=== PATIENT | male | born 1945 | race Caucasian/White ===

== ENCOUNTER 2016-06-12 13:25 | Outpatient (CLI) | payer MEDICARE ==
[2016-06-12 14:02] LABS: #Basophils 0.1 thou/uL (0.0-0.2); #Eosinphils 0.3 thou/uL (0.0-0.7); #Monocytes 0.9 thou/uL (0.11-0.59); #Neutrophils 5.4 thou/uL (1.40-6.50); %Basophils 1.5 % (0.0-1.0); %Eosinophils 3.9 % (0.0-10.0); %Lymphocytes 22.5 % (21.0-51.0); %Monocytes 10.2 % (0.0-10.0); %Neutrophils 61.9 % (42.0-75.0); Hemoglobin 16.9 g/dL (14.0-18.0); Mean Corpuscular HGB CONC 34.1 g/dL (32.0-36.0); Mean Corpuscular Hemoglobin 32.7 pg (27.0-31.0); Mean Corpuscular Volume 95.7 fl (80.0-94.0); Mean Platelet Volume 6.7 fL (7.4-10.4); Platelet Count 414 thou/uL (130-400); RBC Distribution Width 10.9 % (11.5-14.5); Red Blood Cell (RBC) Count 5.16 mill/uL (4.70-6.10); White Blood Cell (WBC) Count 8.6 thou/uL (4.8-10.8)
[2016-06-12 14:18] LABS: ALT (SGPT) 37 U/L (0-55); AST (SGOT) 28 U/L (5-34); Albumin 4.2 g/dL (3.4-4.8); Alkaline Phosphatase 81 U/L (40-150); Anion Gap 15 mmol/L (10-20); BUN (Urea Nitrogen) 18 mg/dL (8.4-25.7); Bilirubin, Total 0.6 mg/dL (0.2-1.2); Calc. Creatinine Clearance 0 mL/min (70-130); Calcium 9.8 mg/dL (7.8-10.44); Carbon Dioxide 23 mmol/L (23-31); Cardiac Risk 3.5 (Less than 4.5); Chloride 96 mmol/L (98-107); Cholesterol 135 mg/dL (< 200 Desired); Estimated GFR-MDRD 65; Globulin 3.1 g/dL (2.4-3.5); Glucose 101 mg/dL (83-110); HDL Cholesterol 39 mg/dL (>60 Neg Risk); LDL Cholesterol, Calculated 67 mg/dL; Potassium 3.9 mmol/L (3.5-5.1); Protein, Total 7.3 g/dL (5.8-8.1); Sodium 130 mmol/L (136-145); Triglycerides 143 mg/dL (Less than 150)
[2016-06-12 14:36] LABS: PSA-Asymptomatic (SCREENING) 0.22 ng/mL (0-4.0); Thyroid Stimulating Hormone 1.3261 uIU/mL (0.35-4.94)
== END 2016-06-12 13:26 | disposition home or self-care (01) ==
LOC: HPCALD 13:25
PROVIDERS: ATTEND Family Medicine
DX: Z12.5 Encounter for screening for malignant neoplasm of prostate (principal); I10 Essential (primary) hypertension; E78.5 Hyperlipidemia, unspecified
CPT/HCPCS: 36415; 80053; 80061; 84443; 85025; G0103

== ENCOUNTER 2016-09-04 07:06 | Outpatient (CLI) | payer MEDICARE ==
[2016-09-04 07:39] LABS: Mean Corpuscular HGB CONC 34.6 g/dL (32.0-36.0); Mean Corpuscular Hemoglobin 33.2 pg (27.0-31.0); Mean Corpuscular Volume 96.1 fl (80.0-94.0); Mean Platelet Volume 6.7 fL (7.4-10.4); Platelet Count 321 thou/uL (130-400); RBC Distribution Width 12.2 % (11.5-14.5); Red Blood Cell (RBC) Count 4.81 mill/uL (4.70-6.10); White Blood Cell (WBC) Count 6.6 thou/uL (4.8-10.8)
[2016-09-04 07:54] LABS: ALT (SGPT) 21 U/L (8-55); AST (SGOT) 17 U/L (5-34); Alkaline Phosphatase 67 U/L (40-150); BUN (Urea Nitrogen) 10 mg/dL (8.4-25.7); Bilirubin, Direct 0.2 mg/dL (0.1-0.3); Bilirubin, Total 0.5 mg/dL (0.2-1.2); Calc. Creatinine Clearance 0 mL/min (70-130); Estimated GFR-MDRD 75; Protein, Total 6.7 g/dL (5.8-8.1); Triglycerides 82 mg/dL (Less than 150)
[2016-09-06 08:22] LABS: Antinuclear AB Negative (Negative)
== END 2016-09-04 07:07 | disposition home or self-care (01) ==
LOC: BURLAB 07:06
PROVIDERS: ATTEND Physician Assistant Medical
DX: L40.0 Psoriasis vulgaris (principal)
CPT/HCPCS: 36415; 80076; 82565; 84478; 84520; 85027; 86038

== ENCOUNTER 2016-10-04 07:24 | Outpatient (CLI) | payer MEDICARE ==
[2016-10-04 08:07] LABS: Hemoglobin 16.8 g/dL (14.0-18.0); Mean Corpuscular HGB CONC 34.4 g/dL (32.0-36.0); Mean Corpuscular Hemoglobin 32.4 pg (27.0-31.0); Mean Corpuscular Volume 94.3 fl (80.0-94.0); Mean Platelet Volume 6.7 fL (7.4-10.4); Platelet Count 365 thou/uL (130-400); RBC Distribution Width 11.9 % (11.5-14.5); Red Blood Cell (RBC) Count 5.19 mill/uL (4.70-6.10); White Blood Cell (WBC) Count 7.8 thou/uL (4.8-10.8)
[2016-10-04 08:28] LABS: ALT (SGPT) 24 U/L (8-55); AST (SGOT) 21 U/L (5-34); Albumin 4.1 g/dL (3.4-4.8); Alkaline Phosphatase 87 U/L (40-150); BUN (Urea Nitrogen) 12 mg/dL (8.4-25.7); Bilirubin, Direct 0.2 mg/dL (0.1-0.3); Bilirubin, Total 0.5 mg/dL (0.2-1.2); Calc. Creatinine Clearance 0 mL/min (70-130); Estimated GFR-MDRD 83; Protein, Total 7.7 g/dL (5.8-8.1); Triglycerides 136 mg/dL (Less than 150)
== END 2016-10-04 07:25 | disposition home or self-care (01) ==
LOC: BURLAB 07:24
PROVIDERS: ATTEND Physician Assistant Medical
DX: L40.0 Psoriasis vulgaris (principal)
CPT/HCPCS: 36415; 80076; 82565; 84478; 84520; 85027; 86038

== ENCOUNTER 2017-11-04 14:38 | Outpatient (CLI) | payer MEDICARE ==
--- NOTE | 2017-11-04 16:58 | RAD ---
CHEST 2 VIEWS: Date: 11/04/17 The heart is mildly enlarged, but there are no congestive changes or pleural effusions. Calcific pearson ges are seen in the aortic arch. The trachea is close to midline. There are no lobar consolidations. The lungs are hyperexpanded, suggesting that there may be an element of COPD. There is a questionable nodular area in the right lower chest on the PA view that is not confidently seen on the lateral vie w. It could be a small, 8-9 mm, nodule, or could just be a confluence of lung markings. Depending upo n the clinical history of the patient, one may wish to follow with a CT scan to be certain, or at [facility] follow-up chest films over a short interval. IMPRESSION: 1. Mild cardiomegaly and arteriosclerosis. No congestive change. 2. Hyperexpanded lungs. 3. Equivocal 8-9 mm nodule in the right lower chest. See above. CODE T. POS: HOME
[2017-11-04 18:01] LABS: Hemoglobin 13.8 g/dL (14.0-18.0); Mean Corpuscular HGB CONC 34.5 g/dL (32.0-36.0); Mean Corpuscular Hemoglobin 33.6 pg (27.0-31.0); Mean Corpuscular Volume 97.5 fL (78.0-98.0); Mean Platelet Volume 8.6 fL (7.4-10.4); Platelet Count 333 thou/uL (130-400); RBC Distribution Width 12.9 % (11.5-14.5); White Blood Cell (WBC) Count 8.9 thou/uL (4.8-10.8)
[2017-11-04 18:13] LABS: ALT (SGPT) 20 U/L (8-55); AST (SGOT) 22 U/L (5-34); Albumin 4.2 g/dL (3.4-4.8); Alkaline Phosphatase 68 U/L (40-150); BUN (Urea Nitrogen) 17 mg/dL (8.4-25.7); Bilirubin, Direct 0.1 mg/dL (0.1-0.3); Bilirubin, Total 0.3 mg/dL (0.2-1.2); Calc. Creatinine Clearance 0 mL/min (70-130); Estimated GFR-MDRD 62; Protein, Total 6.7 g/dL (5.8-8.1)
[2017-11-05 12:25] LABS: ANA Symphony (Qualitative) Negative (Negative); dsDNA IgG Antibody 1.1 IU/mL (<10 Negative)
== END 2017-11-04 14:39 | disposition home or self-care (01) ==
LOC: BURRAD 14:38
PROVIDERS: ATTEND Physician Assistant Medical
DX: L40.0 Psoriasis vulgaris (principal); I51.7 Cardiomegaly; I70.0 Atherosclerosis of aorta; R91.1 Solitary pulmonary nodule
CPT/HCPCS: 36415; 71046; 80076; 82565; 84520; 85027; 86038; 86225; 86480

== ENCOUNTER 2017-11-24 15:02 | Outpatient (CLI) | payer MEDICARE ==
--- NOTE | 2017-11-24 19:46 | CT ---
CT CHEST WITHOUT CONTRAST: 11/24/2017 TECHNIQUE: A spiral CT of the chest was performed for evaluation of a possible pulmonary nodule in the right joi g base. This was questioned on a recent chest x-ray. TECHNIQUE: IV contrast was deferred due to the patient's creatinine being slightly higher than normal. Axial sl ices were acquired and then coronal reconstructions were done. FINDINGS: No pulmonary nodule was visible on this study. The area in question in the right lower chest showed no sign of mass, infiltrate, or other acute change. There were no effusions. The mediastinum showed no mass or adenopathy. Coronary artery calcifications were present, predomina ntly in the left coronary system. Scans into the abdomen showed considerable plaque formation near the origin of the celiac and SMA. N o adrenal masses were seen. The visible upper abdominal structures showed no acute findings within t he limitations of a noncontrast scan. There was a small hiatal hernia. On scan #23 of the axial series, one sees a rounded, 1.2 cm soft tissue nodule in the left anterolate ral chest wall, just a few centimeters lateral to the nipple. Additionally, there is an ovoid, 1.6 c m nodule in the soft tissues at the same level on the right side, located laterally. Neither of thes e would be responsible for the findings on the chest x-ray. The margins of these nodules are very sm ooth. My suspicion is that they may be lymph nodes. IMPRESSION: 1. No evidence of pulmonary nodules. 2. Coronary arterial sclerosis, mild. 3. Two soft tissue nodules, one in each lateral chest subcutaneous fat, at the nipple levels, though to be more likely nodes than not. 4. Small hiatal hernia. POS: HOME
== END 2017-11-24 15:03 | disposition home or self-care (01) ==
LOC: BURCT 15:02
PROVIDERS: ATTEND Family Medicine
DX: R91.1 Solitary pulmonary nodule (principal); I10 Essential (primary) hypertension; I25.10 Atherosclerotic heart disease of native coronary artery without angina pectoris; K44.9 Diaphragmatic hernia without obstruction or gangrene; R22.2 Localized swelling, mass and lump, trunk
CPT/HCPCS: 71250

== ENCOUNTER 2020-06-25 09:55 | Emergency (ER) | payer MEDICARE | END 2020-06-25 10:48 | disposition home or self-care (01) | LOC: BURERS 09:55 | DX: B02.30 Zoster ocular disease, unspecified (principal); I10 Essential (primary) hypertension; E78.00 Pure hypercholesterolemia, unspecified; I25.10 Atherosclerotic heart disease of native coronary artery without angina pectoris; Z87.891 Personal history of nicotine dependence | CPT/HCPCS: 99282 ==